=== PATIENT | male | born 1935 | race Caucasian/White ===

== ENCOUNTER 2016-07-18 06:19 | Day surgery (SDC) | payer MEDICARE, BC ==
[2016-07-16 14:46] VITALS: BMI 31.3
[~2016-07-18 06:19] MED LIST: DEXAMETHASONE SOD PHOSPHATE 10 MG/ML 1 ML VIAL IV ONE; HEPARIN SODIUM,PORCINE 5,000 UNIT/ML 1 ML VIAL SQ ONE; HYDROmorphone 1 MG/ML 1 ML SYRINGE IVP PRN; LACTATED RINGERS 1,000 ML IV SCH; ONDANSETRON 4 MG/2 ML VIAL IVP ONE; Pre Op ABX Message 1 EACH MISC MISCELLANE ONE
[2016-07-18 06:41] VITALS: RESP 18; TEMP 98
[2016-07-18] MEDS ORDERED: LIDOCAINE 1% 20 ML VIAL (10MG/ML) FOR IV START INTRADERMA ONE (07:14)
[2016-07-18 07:18] LABS: Glucose,Whole Blood 169 mg/dL (75-99)
--- NOTE | 2016-07-18 07:40 | P.GSHP ---
History of Present Illness H&P Date: 07/18/16 Chief Complaint: Right cheek skin lesion [id number] male referred from Dr. Olegario Dwyer. Patient presents today for excision of a right cheek skin lesion. Patient has had issues with some bleeding from the skin lesion. It has grown slightly in size in the last 4 months. Past Medical History Past Medical History: Cancer, Diabetes Mellitus, Eye Disorder Additional Past Medical History / Comment(s): COLOSTOMY, CANCEROUS RECTAL TUMOR History of Any Multi-Drug Resistant Organisms: None Reported Past Surgical History: Bowel Resection, Hernia Repair Additional Past Surgical History / Comment(s): INCIONAL HERNIA REPAIR OF STOMA X2, VENKATESH INGUINAL HERNIA REPAIR, HYDROCELE REPAIR Past Anesthesia/Blood Transfusion Reactions: No Reported Reaction Past Psychological History: No Psychological Hx Reported Smoking Status: Former smoker Past Alcohol Use History: None Reported Additional Past Alcohol Use History / Comment(s): Chewed tobacco and smoked cigars quit 20 yrs ago. Past Drug Use History: None Reported - Past Family History Daughter(s) Family Medical History: Cancer Medications and Allergies Home Medications Medication Instructions Recorded Confirmed Type Zolpidem [Ambien] 10 mg PO HS 12/17/13 07/18/16 History glipiZIDE [Glucotrol] 10 mg PO DAILY 12/17/13 07/18/16 History metFORMIN HCL [Glucophage] 500 mg PO QAM 12/17/13 07/18/16 History Allergies Allergy/AdvReac Type Severity Reaction Status Date / Time No Known Allergies Allergy Verified 07/18/16 07:02 Surgical - Exam Vital Signs Temp Pulse Resp BP Pulse Ox 98.0 F 69 18 166/73 96 07/18/16 06:35 07/18/16 06:35 07/18/16 06:35 07/18/16 06:35 07/18/16 06:35 - General well developed, no distress - Eyes PERRL - ENT normal pinna - Neck no masses - Respiratory normal expansion - Cardiovascular Rhythm: regular - Abdomen Abdomen: soft, non tender - Integumentary 2.5 cm scaly erythematous skin lesion of right cheek near patient's preauricular area. Results - Labs Abnormal Lab Results - Last 24 Hours (Table) 07/18/16 Range/Units 06:57 POC Glucose (mg/dL) 169 H (75-99) mg/dL Assessment and Plan Plan: Right cheek skin lesion. We will perform excision.
[2016-07-18] MEDS ORDERED: BUPIVACAIN-EPI 0.25%-1:200,000 30 ML VIAL SQ ONE ×2 (07:47)
[2016-07-18] MEDS ORDERED: PROPOFOL 10 MG/ML 20 ML VIAL IV ONE (07:49)
[2016-07-18] MEDS ORDERED: MIDAZOLAM 2 MG/2 ML VIAL ONE (07:49)
[2016-07-18] MEDS ORDERED: fentaNYL (PF) 50 MCG/ML 2 ML AMP ONE (07:49)
--- NOTE | 2016-07-18 08:25 | P.OP ---
Date of Procedure: 07/18/16 Preoperative Diagnosis: Right cheek skin lesion Postoperative Diagnosis: Right cheek skin lesion Procedure(s) Performed: Excision of right cheek skin lesion Anesthesia: MAC Surgeon: Blake Reynoso Estimated Blood Loss (ml): 5 Pathology: other (Right cheek skin) Condition: stable Disposition: PACU Description of Procedure: The patient's placed on the operative table in the supine position. He received IV sedation. His right cheek was prepped and draped in usual sterile fashion. The skin lesion was marked and then using elliptical skin incision the lesion was excised. A 15 blade was used to divide the skin and electrocautery used to divide the subcutaneous tissues. The specimens of pathology. The skin was closed using 3-0 Monocryl suture. Steri-Strips were applied. Patient top procedure well and was sent to recovery in stable condition
[2016-07-18 08:52] VITALS: BP 150/77; PULSE 61
== END 2016-07-18 09:20 | disposition home or self-care (01) ==
LOC: OR 06:19
PROVIDERS: ATTEND Surgery
DX: L82.1 Other seborrheic keratosis (principal); L57.8 Other skin changes due to chronic exposure to nonionizing radiation; E11.9 Type 2 diabetes mellitus without complications; Z79.84 Long term (current) use of oral hypoglycemic drugs; Z79.899 Other long term (current) drug therapy; Z87.891 Personal history of nicotine dependence
CPT/HCPCS: 88305; 11443; J2250; J1644; J1100; J2405; J3010; J2704

== ENCOUNTER 2017-04-11 07:52 | Inpatient (IN) | payer MEDICARE, BC ==
[2017-04-03 15:10] VITALS: BMI 30.8
[~2017-04-11 07:52] MED LIST changes: -DEXAMETHASONE SOD PHOSPHATE 10 MG/ML 1 ML VIAL IV ONE; -HYDROmorphone 1 MG/ML 1 ML SYRINGE IVP PRN; -LACTATED RINGERS 1,000 ML IV SCH; +MIDAZOLAM 2 MG/2 ML VIAL IV PRN; +MORPHINE SULFATE 4 MG/ML SYRINGE IV PRN; -ONDANSETRON 4 MG/2 ML VIAL IVP ONE; -Pre Op ABX Message 1 EACH MISC MISCELLANE ONE; +ceFAZolin IN SWFI 2 GM/20 ML SYRINGE IVP ONE
[2017-04-11 08:23] LABS: Glucose,Whole Blood 198 mg/dL (75-99)
[2017-04-11] MEDS: LACTATED RINGERS 1,000 ML IV SCH ×2 (08:25→20:29)
[2017-04-11] MEDS ORDERED: DEXAMETHASONE SOD PHOSPHATE 10 MG/ML 1 ML VIAL IV ONE (08:34)
[2017-04-11] MEDS ORDERED: ONDANSETRON 4 MG/2 ML VIAL IVP ONE (08:34)
--- NOTE | 2017-04-11 09:15 | P.GSHP ---
History of Present Illness H&P Date: 04/11/17 Chief Complaint: Parastomal hernia with prolapse of colostomy The 81-year-old male referred from Dr. Olegario Dwyer. Patient resents today for repair of parastomal hernia and colostomy prolapse. Patient has had medical clearance provided by Dr. Arshad prior to surgery. Patient's family are aware that he has a large parastomal hernia the colostomy fully removed and the stomal hernia will be repaired at the time of surgery. I've gone over the risks of surgery with the patient's family. Past Medical History Past Medical History: Cancer, Diabetes Mellitus, Eye Disorder Additional Past Medical History / Comment(s): COLOSTOMY, CANCEROUS RECTAL TUMOR History of Any Multi-Drug Resistant Organisms: None Reported Past Surgical History: Bowel Resection, Hernia Repair Additional Past Surgical History / Comment(s): INCIONAL HERNIA REPAIR OF STOMA X2, VENKATESH INGUINAL HERNIA REPAIR, HYDROCELE REPAIR Past Anesthesia/Blood Transfusion Reactions: No Reported Reaction Past Psychological History: No Psychological Hx Reported Smoking Status: Former smoker Past Alcohol Use History: None Reported Additional Past Alcohol Use History / Comment(s): Chewed tobacco and smoked cigars quit 20 yrs ago. Past Drug Use History: None Reported - Past Family History Daughter(s) Family Medical History: Cancer Medications and Allergies Home Medications Medication Instructions Recorded Confirmed Type Zolpidem [Ambien] 10 mg PO HS 12/17/13 04/03/17 History glipiZIDE [Glucotrol] 10 mg PO DAILY 12/17/13 04/03/17 History metFORMIN HCL [Glucophage] 500 mg PO QAM 12/17/13 04/03/17 History Baclofen [Lioresal] 10 mg PO DAILY 04/03/17 04/03/17 History Escitalopram [Lexapro] 5 mg PO DAILY 04/03/17 04/03/17 History Losartan [Cozaar] 25 mg PO DAILY 04/03/17 04/11/17 History Multivitamin [Men's Multi-Vitamin] 1 each PO DAILY 04/03/17 04/03/17 History Allergies Allergy/AdvReac Type Severity Reaction Status Date / Time No Known Allergies Allergy Verified 04/11/17 08:29 Surgical - Exam Vital Signs Temp Pulse Resp BP Pulse Ox 97.7 F 82 16 189/66 96 04/11/17 08:23 04/11/17 08:23 04/11/17 08:23 04/11/17 08:23 04/11/17 08:23 - General well developed, well nourished, no distress - Eyes PERRL - ENT normal pinna - Neck no masses - Respiratory normal expansion - Cardiovascular Rhythm: regular - Abdomen Abdomen: soft, non tender (Large parastomal hernia left lower quadrant. There is prolapse of approximately 5 cm of colon within the colostomy.) Results - Labs Abnormal Lab Results - Last 24 Hours (Table) 04/11/17 Range/Units 08:20 POC Glucose (mg/dL) 198 H (75-99) mg/dL Assessment and Plan Assessment: Parastomal hernia we will perform repair.
[2017-04-11] MEDS ORDERED: LIDOCAINE 1% INJ 10MG/ML (20 ML MDV) ONE (09:38)
[2017-04-11] MEDS ORDERED: LABETALOL 5 MG/ML VIAL MDV ONE (09:38)
[2017-04-11] MEDS ORDERED: HYDROmorphone (PF) 1 MG/ML ONE (09:38)
[2017-04-11] MEDS ORDERED: PROPOFOL 10 MG/ML 20 ML VIAL IV ONE (09:38)
[2017-04-11] MEDS ORDERED: NEOSTIGMINE 1 MG/ML 10 ML VIAL ONE (09:38)
[2017-04-11] MEDS ORDERED: fentaNYL (PF) 50 MCG/ML 2 ML AMP ONE (09:38)
[2017-04-11] MEDS ORDERED: ROCURONIUM BROMIDE 10 MG/ML 10 ML VIAL IV ONE (09:38)
[2017-04-11] MEDS ORDERED: SUCCINYLCHOLINE CHLORIDE 100 MG/5 ML SYR IV ONE (09:38)
[2017-04-11] MEDS ORDERED: GLYCOPYRROLATE 0.2 MG/ML 2 ML VIAL ONE (09:38)
[2017-04-11] MEDS ORDERED: LACTATED RINGERS 1,000 ML IV ONE ×2 (10:00→11:27)
[2017-04-11] MEDS ORDERED: ONDANSETRON 4 MG/2 ML VIAL IVP PRN (11:50)
[2017-04-11] MEDS ORDERED: BENZOCAINE/MENTHOL LOZENG 1 EACH LOZENGE MUCOUS MEM PRN (11:50)
[2017-04-11] MEDS: HYDROmorphone 0.5 MG/0.5 ML SYRINGE IVP PRN ×4 (12:18→13:38)
[2017-04-11] MEDS ORDERED: hydrALAZINE HCL 20 MG/ML 1 ML VIAL IVP ONE (12:44)
[2017-04-11] MEDS ORDERED: METOPROLOL TARTRATE 5 MG/5 ML VIAL IVP ONE (13:04)
[2017-04-11 13:11] LABS: Glucose,Whole Blood 222 mg/dL (75-99)
[2017-04-11] MEDS ORDERED: INSULIN ASPART 100 UNIT/ML 1 ML 10 ML VIAL SQ ONE (13:20)
--- NOTE | 2017-04-11 13:47 | P.OP ---
Date of Procedure: 04/11/17 Preoperative Diagnosis: Parastomal hernia with prolapse of colon Postoperative Diagnosis: Parastomal hernia with prolapse of colon Procedure(s) Performed: Lysis of adhesions Repair of parastomal hernia Partial colectomy Anesthesia: EMMA Surgeon: Blake Reynoso Estimated Blood Loss (ml): 150 Pathology: other (colon) Condition: stable Disposition: PACU Description of Procedure: The patient's placed on the operating table in the supine position. He received general anesthesia. His abdomen was prepped and draped usual sterile fashion. The skin was incised in the low midline incision. There were adhesions noted in the belly. Approximate 30 minutes of operative time used to lyse adhesions. The colon was transected at the fascial level. And then the colon was mobilized along the colon. A suitable spot was found on the left upper quadrant. Using a 15 blade scalpel the skin was incised and then using left cautery the fascia was divided the colon was then brought out through the new colostomy site. The fascia was then closed with looped #1 PDS suture. Skin was closed charbel. The old colostomy site was dissected by dividing the mucocutaneous line and excising the colostomy. The specimens of pathology. The fascial defect was then closed using #1 Ethibond sutures. A VARINDER drain was placed in the subcutaneous space and brought out through a separate stab incision. Next the colostomy was matured by dividing the colon and the redundant colon was sent to pathology. The colostomy then matured using 3-0 Vicryl suture. Silver dressing was applied to the incision site. Patient top she will was sent to recovery in stable condition.
[2017-04-11] MEDS: HYDROmorphone 2 MG/ML 1 ML SYRINGE IVP PRN ×2 (15:30→23:31)
[2017-04-11] MEDS: D5-0.45% NACL WITH KCL 20MEQ/L 1,000 ML IV SCH ×2 (15:32→23:23)
[2017-04-11 17:08] LABS: Glucose,Whole Blood 211 mg/dL (75-99)
[2017-04-11] MEDS: HEPARIN SODIUM,PORCINE 5,000 UNIT/ML 1 ML VIAL SQ SCH ×2 (17:19→23:23)
[2017-04-11] MEDS: INSULIN ASPART 100 UNIT/ML 1 ML 10 ML VIAL SQ SCH ×2 (17:19→20:25)
[2017-04-11 19:57] LABS: Glucose,Whole Blood 188 mg/dL (75-99)
[2017-04-11] MEDS: ALVIMOPAN 12 MG CAPSULE PO SCH (20:28)
[2017-04-11] MEDS: FAMOTIDINE 20 MG/2 ML VIAL IV SCH (20:28)
[2017-04-11] MEDS: ZOLPIDEM 10 MG TAB PO PRN (23:23)
[2017-04-12 07:07] LABS: Glucose,Whole Blood 241 mg/dL (75-99)
[2017-04-12 07:30] LABS: Basophils # (A) 0.1 k/uL (0-0.2); Basophils % (A) 1 %; Eosinophils % (A) 0 %; HCT 36.6 % (39.0-53.0); HGB 12.7 gm/dL (13.0-17.5); Lymphocytes % (A) 54 %; MCH 31.9 pg (25.0-35.0); MCHC 34.7 g/dL (31.0-37.0); MCV 91.9 fL (80.0-100.0); Mean Platelet Volume 6.5; Monocytes # (A) 0.7 k/uL (0-1.0); Monocytes % (A) 4 %; Neutrophils # (A) 7.2 k/uL (1.3-7.7); Neutrophils % (A) 39 %; Platelet Count 131 k/uL (150-450); RBC 3.98 m/uL (4.30-5.90); RDW 14.4 % (11.5-15.5); WBC 18.5 k/uL (3.8-10.6)
[2017-04-12 07:31] LABS: Lymphocytes # (A) 9.9 k/uL (1.0-4.8)
[2017-04-12 07:46] LABS: Anion Gap 8 mmol/L; Blood Urea Nitrogen 15 mg/dL (9-20); Calcium 8.9 mg/dL (8.4-10.2); Carbon Dioxide 27 mmol/L (22-30); Chloride 102 mmol/L (98-107); Glucose 240 mg/dL (74-99); Potassium 4.7 mmol/L (3.5-5.1); Sodium 137 mmol/L (137-145)
[2017-04-12] MEDS: INSULIN ASPART 100 UNIT/ML 1 ML 10 ML VIAL SQ SCH ×4 (08:03→20:55)
[2017-04-12] MEDS: HEPARIN SODIUM,PORCINE 5,000 UNIT/ML 1 ML VIAL SQ SCH ×2 (08:04→15:33)
[2017-04-12] MEDS: ALVIMOPAN 12 MG CAPSULE PO SCH ×2 (08:06→20:55)
[2017-04-12] MEDS: LOSARTAN 25 MG TAB PO SCH (08:06)
[2017-04-12] MEDS: metFORMIN 500 MG TAB PO SCH (08:06)
[2017-04-12] MEDS: glipiZIDE 10 MG TAB PO SCH (08:06)
[2017-04-12] MEDS: FAMOTIDINE 20 MG/2 ML VIAL IV SCH ×2 (08:06→20:55)
[2017-04-12] MEDS: ESCITALOPRAM 5 MG TAB PO SCH (08:06)
[2017-04-12] MEDS: BACLOFEN 10 MG TAB PO SCH (08:06)
[2017-04-12] MEDS: D5-0.45% NACL WITH KCL 20MEQ/L 1,000 ML IV SCH ×2 (08:09→13:44)
[2017-04-12 11:40] LABS: Glucose,Whole Blood 237 mg/dL (75-99)
--- NOTE | 2017-04-12 11:49 | P.PN ---
Subjective Progress Note Date: 04/12/17 The patient is a 81-year-old gentleman status post open parastomal hernia repair. His family is at bedside. His tolerating liquids. No flatus in his ostomy bag. White count elevated at over 18,000. His pain is controlled. Reports gastroesophageal reflux disease. No concerns from his nurse. Objective - Vital Signs Vital signs: Vital Signs Temp 98.7 F 04/12/17 07:00 Pulse 75 04/12/17 07:00 Resp 14 04/12/17 07:00 BP 149/72 04/12/17 07:00 Pulse Ox 94 L 04/12/17 07:00 Intake & Output 04/11/17 04/12/17 04/12/17 18:59 06:59 18:59 Intake Total 2620 720 Output Total 755 1050 40 Balance 1865 -1050 680 Intake: IV 2400 Oral 220 720 Output: Drainage 40 Left Lower Abdomen 40 Urine 575 1050 Estimated Blood Loss 180 Other: Voiding Method Indwelling Catheter Indwelling Catheter Indwelling Catheter - Exam GENERAL: Well developed and in no acute distress. Pleasant. HEENT: No sclera icterus. Extraocular movements grossly intact. Moist buccal mucosa. Head is atraumatic, normocephalic. He is hard of hearing. CHEST: Non-labored respirations and equal bilateral excursions. CARDIOVASCULAR: Palpable 2+ radial pulses. ABDOMEN: Soft, no peritonitis. No flatus or stool in colostomy bag. Dressings intact. MUSCULOSKELETAL: No clubbing, cyanosis. NEUROLOGIC: No focal or lateralizing signs. PSYCH: Appropriate affect. - Labs CBC & Chem 7: 04/12/17 06:48 04/12/17 06:48 Labs: Abnormal Lab Results - Last 24 Hours (Table) 04/11/17 04/11/17 04/11/17 Range/Units 13:09 17:03 19:54 WBC (3.8-10.6) k/uL RBC (4.30-5.90) m/uL Hgb (13.0-17.5) gm/dL Hct (39.0-53.0) % Plt Count (150-450) k/uL Lymphocytes # (1.0-4.8) k/uL Glucose (74-99) mg/dL POC Glucose (mg/dL) 222 H 211 H 188 H (75-99) mg/dL 04/12/17 04/12/17 04/12/17 Range/Units 06:48 06:48 07:04 WBC 18.5 H (3.8-10.6) k/uL RBC 3.98 L (4.30-5.90) m/uL Hgb 12.7 L (13.0-17.5) gm/dL Hct 36.6 L (39.0-53.0) % Plt Count 131 L (150-450) k/uL Lymphocytes # 9.9 H (1.0-4.8) k/uL Glucose 240 H (74-99) mg/dL POC Glucose (mg/dL) 241 H (75-99) mg/dL 04/12/17 Range/Units 11:37 WBC (3.8-10.6) k/uL RBC (4.30-5.90) m/uL Hgb (13.0-17.5) gm/dL Hct (39.0-53.0) % Plt Count (150-450) k/uL Lymphocytes # (1.0-4.8) k/uL Glucose (74-99) mg/dL POC Glucose (mg/dL) 237 H (75-99) mg/dL Assessment and Plan (1) Parastomal hernia Current Visit: Yes Status: Acute Code(s): K43.5 - PARASTOMAL HERNIA WITHOUT OBSTRUCTION OR GANGRENE SNOMED Code(s): 386878707 (2) Diabetes type 2, controlled Current Visit: Yes Status: Acute Code(s): E11.9 - TYPE 2 DIABETES MELLITUS WITHOUT COMPLICATIONS SNOMED Code(s): 83465390 (3) Diabetes type 2, uncontrolled Current Visit: Yes Status: Acute Code(s): E11.65 - TYPE 2 DIABETES MELLITUS WITH HYPERGLYCEMIA SNOMED Code(s): 82674839 Plan: 1. He still has a mild ileus. Continue with hospitalization. 2. Await ostomy function prior to discharge. 3. Continue with VARINDER drain. 4. Continue with antibiotics.
[2017-04-12] MEDS: MULTIVITAMINS, THERA 1 EACH TAB PO SCH (13:43)
[2017-04-12 13:50] LABS: Hemoglobin A1C 6.8 % (4.0-6.0)
--- NOTE | 2017-04-12 14:32 | XR ---
EXAMINATION TYPE: XR chest 1V portable DATE OF EXAM: 04/12/2017 Comparison: None Clinical History: 81-year-old male cough Findings: Lordotic positioning. Heart mildly enlarged. Aorta is elongated/ectatic. Mild interstitial prominence has somewhat chronic appearance. Hazy bibasilar densities likely relating to overlying soft tissue. Trace effusions difficult to exclude. Impression: Mild cardiomegaly. Lordotic positioning with hazy densities in the lower lungs likely relating to ove rlying soft tissue. Trace effusions difficult to exclude.
[2017-04-12] MEDS: LEVOFLOXACIN 500MG-D5W PMX 500 MG in DEXTROSE/WATER 1 100ML.BAG IVPB SCH (15:33)
[2017-04-12] MEDS: IPRATROPIUM-ALBUTEROL 3 ML NEB INHALATION PRN ×2 (16:52→20:39)
[2017-04-12 17:26] LABS: Glucose,Whole Blood 224 mg/dL (75-99)
[2017-04-12] MEDS: HYDROmorphone 2 MG/ML 1 ML SYRINGE IVP PRN ×2 (17:56→22:37)
--- NOTE | 2017-04-12 19:04 | CONS ---
CONSULTATION DATE OF SERVICE: 04/12/2017 I am covering for Dr. Arshad. REASON FOR CONSULTATION: Advice regarding diabetes and other medical issues requested by Dr. Reynoso. HISTORY OF PRESENT ILLNESS: This 81-year-old gentleman with a past history of diabetes type 2, history of colostomy, history of rectal cancer, history of bowel resection, being followed by Dr. Arshad in the outpatient setting, underwent parastomal hernia repair with a prolapse of colon and lysis of adhesions by Dr. Reynoso. The patient is hard of hearing. There is no history of fever, rigors. No history of headache, loss of consciousness, seizures at this time. PAST MEDICAL HISTORY: History of diabetes, history of colostomy, history of bowel resection, hernia repair. MEDICATIONS ARE: 1. Metformin 500 mg p.o. daily. 2. Glucotrol 10 mg daily. 3. Ambien 10 mg q.h.s. 4. Multivitamins 1 p.o. daily. 5. Cozaar 25 mg daily. 6. Lexapro 5 mg p.o. daily. 7. Lioresal 10 mg p.o. daily. ALLERGIES: None. FAMILY HISTORY: History of cancer in the family. SOCIAL HISTORY: Previous history of smoking. No history of current smoking or alcohol intake. REVIEW OF SYSTEMS: ENT: Diminished hearing, diminished vision. CARDIOVASCULAR: No angina, palpitations. RESPIRATORY: Occasional cough. GI: No nausea or vomiting. : No dysuria. NERVOUS: No numbness or weakness. ALLERGY/IMMUNOLOGY: No asthma or hay fever. MUSCULOSKELETAL: As mentioned earlier. HEMATOLOGY/ONCOLOGY: No history of anemia. ENDOCRINE: Diabetes mellitus. CONSTITUTIONAL: As mentioned earlier. DERMATOLOGY: Negative. RHEUMATOLOGY: Negative. PSYCHIATRY: As mentioned earlier. PHYSICAL EXAMINATION: Alert and oriented x3. Pulse is 81, blood pressure 160/85, respirations 16, temperature 98.7, pulse ox 94% on room air. HEENT: Conjunctivae normal. Oral mucosa moist. NECK: No jugular venous distention. No carotid bruits. No lymph node enlargement. CARDIOVASCULAR: S1, S2 muffled. No S3. No S4. RESPIRATORY: Breath sounds diminished in the bases. A few scattered rhonchi. No crackles. ABDOMEN: Soft, status post surgery. LEGS: No edema. No swelling. NERVOUS SYSTEM: Higher functions as mentioned earlier. Moves all 4 limbs. No focal motor or sensory deficits. LYMPHATIC: No lymphadenopathy in neck or axillae. SKIN: No ulcer, rash or bleeding. LABS: WBC 8.2, hemoglobin is 12.7. ASSESSMENT: 1. Status post parastomal hernia repair with prolapse of colon. 2. Diabetes mellitus type 2. 3. Cough with possible acute bronchitis. 4. Increased WBC. 5. Anemia, normocytic; anemia of chronic disease. 6. History of bowel resection. 7. History of colostomy. 8. Remote history of nicotine dependence. 9. FULL CODE. RECOMMENDATIONS AND DISCUSSION: In this 81-year-old gentleman who presented after surgery, at this time I recommend to continue current medical management and symmetric treatment. I recommend a course of antibiotics as well as bronchodilators. Otherwise, I would also recommend proton pump inhibitors and closely follow. Monitor blood sugars closely. D5 water may be switched to 0.9. We will follow the patient closely with you. Thank you, Dr. Reynoso, for letting us participate in the care of this patient. MMODL / MARYN: [id number] /
[2017-04-12 19:49] LABS: Glucose,Whole Blood 225 mg/dL (75-99)
[2017-04-12] MEDS: LACTATED RINGERS 1,000 ML IV SCH (21:04)
[2017-04-12] MEDS ORDERED: SODIUM CHLORIDE 0.9% 500 ML IV ONE (21:46)
[2017-04-12 21:55] LABS: Glucose,Whole Blood 204 mg/dL (75-99)
[2017-04-12] MEDS: ZOLPIDEM 10 MG TAB PO PRN (22:40)
[2017-04-13] MEDS: HEPARIN SODIUM,PORCINE 5,000 UNIT/ML 1 ML VIAL SQ SCH ×4 (00:40→23:40)
[2017-04-13] MEDS: SODIUM CHLORIDE 0.9% 1,000 ML IV SCH ×3 (00:41→22:38)
[2017-04-13] MEDS: HYDROmorphone 2 MG/ML 1 ML SYRINGE IVP PRN ×3 (04:07→19:18)
[2017-04-13 07:23] LABS: Glucose,Whole Blood 203 mg/dL (75-99)
[2017-04-13 07:34] LABS: Basophils # (A) 0.1 k/uL (0-0.2); Basophils % (A) 1 %; Eosinophils % (A) 0 %; HCT 33.9 % (39.0-53.0); HGB 11.5 gm/dL (13.0-17.5); Lymphocytes % (A) 54 %; MCHC 33.9 g/dL (31.0-37.0); MCV 91.5 fL (80.0-100.0); Mean Platelet Volume 6.9; Monocytes # (A) 0.7 k/uL (0-1.0); Monocytes % (A) 4 %; Neutrophils # (A) 6.8 k/uL (1.3-7.7); Neutrophils % (A) 39 %; Platelet Count 118 k/uL (150-450); Poikilocytosis Slight; RBC 3.71 m/uL (4.30-5.90); RDW 14.5 % (11.5-15.5); WBC 17.3 k/uL (3.8-10.6)
[2017-04-13 07:38] LABS: Anion Gap 7 mmol/L; Blood Urea Nitrogen 12 mg/dL (9-20); Calcium 8.7 mg/dL (8.4-10.2); Carbon Dioxide 27 mmol/L (22-30); Chloride 103 mmol/L (98-107); Glucose 184 mg/dL (74-99); Potassium 4.2 mmol/L (3.5-5.1); Sodium 137 mmol/L (137-145)
[2017-04-13 07:47] LABS: Lymphocytes # (A) 9.2 k/uL (1.0-4.8)
[2017-04-13] MEDS: IPRATROPIUM-ALBUTEROL 3 ML NEB INHALATION PRN (07:57)
[2017-04-13] MEDS: MULTIVITAMINS, THERA 1 EACH TAB PO SCH (08:19)
[2017-04-13] MEDS: metFORMIN 500 MG TAB PO SCH (08:19)
[2017-04-13] MEDS: glipiZIDE 10 MG TAB PO SCH (08:19)
[2017-04-13] MEDS: ALVIMOPAN 12 MG CAPSULE PO SCH ×2 (08:19→20:09)
[2017-04-13] MEDS: FAMOTIDINE 20 MG/2 ML VIAL IV SCH ×2 (08:19→20:08)
[2017-04-13] MEDS: LOSARTAN 25 MG TAB PO SCH (08:19)
[2017-04-13] MEDS: BACLOFEN 10 MG TAB PO SCH (08:19)
[2017-04-13] MEDS: INSULIN ASPART 100 UNIT/ML 1 ML 10 ML VIAL SQ SCH ×4 (08:19→20:08)
[2017-04-13 11:31] LABS: Glucose,Whole Blood 196 mg/dL (75-99)
[2017-04-13] MEDS ORDERED: IPRATROPIUM-ALBUTEROL 3 ML NEB INHALATION PRN (13:23)
--- NOTE | 2017-04-13 13:29 | P.PN ---
Subjective Progress Note Date: 04/13/17 The patient is a 81-year-old gentleman status post open parastomal hernia repair. His family is at bedside. They report he is more confused today. The patient is eager to go home. No reports of nausea vomiting. He has decreased oral intake. No flatus from his colostomy bag. Objective - Vital Signs Vital signs: Vital Signs Temp 98.6 F 04/13/17 07:00 Pulse 90 04/13/17 07:59 Resp 14 04/13/17 07:00 BP 180/82 04/13/17 07:00 Pulse Ox 93 L 04/13/17 07:00 Intake & Output 04/12/17 04/13/17 04/13/17 18:59 06:59 18:59 Intake Total 1080 1375 350 Output Total 1180 1325 250 Balance -100 50 100 Intake: Intake, IV Titration 1025 Amount Sodium Chloride 0.9% 1, 525 000 ml @ 75 mls/hr IV . [id number] [facility] Rx#:[id number] Sodium Chloride 0.9% 500 500 ml @ 999 mls/hr IV .Q31M ONE Rx#:[id number] Oral 1080 350 350 Output: Drainage 80 50 Left Lower Abdomen 80 50 Urine 1100 1275 250 Straight 1000 Other: Voiding Method Indwelling Catheter Urinal Urinal # Voids 2 - Exam GENERAL: Well developed and in no acute distress. Pleasant. HEENT: No sclera icterus. Extraocular movements grossly intact. Moist buccal mucosa. Head is atraumatic, normocephalic. He is hard of hearing. CHEST: Non-labored respirations and equal bilateral excursions. CARDIOVASCULAR: Palpable 2+ radial pulses. ABDOMEN: Soft, no peritonitis. No flatus or stool in colostomy bag. Dressings intact. VARINDER serosanguineous. MUSCULOSKELETAL: No clubbing, cyanosis. NEUROLOGIC: No focal or lateralizing signs. PSYCH: Appropriate affect. - Labs CBC & Chem 7: 04/13/17 07:00 04/13/17 07:00 Labs: Abnormal Lab Results - Last 24 Hours (Table) 04/12/17 04/12/17 04/12/17 Range/Units 06:48 17:21 19:44 WBC (3.8-10.6) k/uL RBC (4.30-5.90) m/uL Hgb (13.0-17.5) gm/dL Hct (39.0-53.0) % Plt Count (150-450) k/uL Lymphocytes # (1.0-4.8) k/uL Glucose (74-99) mg/dL POC Glucose (mg/dL) 224 H 225 H (75-99) mg/dL Hemoglobin A1c 6.8 H (4.0-6.0) % 04/12/17 04/13/17 04/13/17 Range/Units 21:28 07:00 07:00 WBC 17.3 H (3.8-10.6) k/uL RBC 3.71 L (4.30-5.90) m/uL Hgb 11.5 L (13.0-17.5) gm/dL Hct 33.9 L (39.0-53.0) % Plt Count 118 L (150-450) k/uL Lymphocytes # 9.2 H (1.0-4.8) k/uL Glucose 184 H (74-99) mg/dL POC Glucose (mg/dL) 204 H (75-99) mg/dL Hemoglobin A1c (4.0-6.0) % 04/13/17 04/13/17 Range/Units 07:05 11:28 WBC (3.8-10.6) k/uL RBC (4.30-5.90) m/uL Hgb (13.0-17.5) gm/dL Hct (39.0-53.0) % Plt Count (150-450) k/uL Lymphocytes # (1.0-4.8) k/uL Glucose (74-99) mg/dL POC Glucose (mg/dL) 203 H 196 H (75-99) mg/dL Hemoglobin A1c (4.0-6.0) % Assessment and Plan (1) Parastomal hernia Current Visit: Yes Status: Acute Code(s): K43.5 - PARASTOMAL HERNIA WITHOUT OBSTRUCTION OR GANGRENE SNOMED Code(s): 957462478 (2) Diabetes type 2, controlled Current Visit: Yes Status: Acute Code(s): E11.9 - TYPE 2 DIABETES MELLITUS WITHOUT COMPLICATIONS SNOMED Code(s): 65737263 (3) Diabetes type 2, uncontrolled Current Visit: Yes Status: Acute Code(s): E11.65 - TYPE 2 DIABETES MELLITUS WITH HYPERGLYCEMIA SNOMED Code(s): 93862599 Plan: 1. Await ostomy function. 2. White blood cell count still elevated. Await improvement. 3. Continue hospitalization. 4. Dr. Reynoso to resume care tomorrow.
[2017-04-13] MEDS: LEVOFLOXACIN 500MG-D5W PMX 500 MG in DEXTROSE/WATER 1 100ML.BAG IVPB SCH (15:24)
[2017-04-13 17:35] LABS: Glucose,Whole Blood 122 mg/dL (75-99)
[2017-04-13 20:08] LABS: Glucose,Whole Blood 166 mg/dL (75-99)
[2017-04-13] MEDS: LACTATED RINGERS 1,000 ML IV SCH (22:39)
[2017-04-13 23:55] LABS: Appearance,Urine Clear (Clear); Bilirubin,Urine Negative (Negative); Blood,Urine Small (Negative); Color,Urine Yellow; Glucose,Urine (UA) Negative (Negative); Ketones,Urine Negative (Negative); Leukocyte Esterase,Urine Negative (Negative); Mucus,Urine Rare /hpf; Nitrite,Urine Negative (Negative); Protein,Urine Trace (Negative); RBC,Urine 2 /hpf (0-5); Specific Gravity,Urine 1.007 (1.001-1.035); Urobilinogen,Urine <2.0 mg/dL (<2.0); WBC,Urine 1 /hpf (0-5)
[2017-04-14] MEDS: SODIUM CHLORIDE 0.9% 1,000 ML IV SCH ×2 (08:01→22:18)
[2017-04-14] MEDS: INSULIN ASPART 100 UNIT/ML 1 ML 10 ML VIAL SQ SCH ×4 (08:02→22:17)
[2017-04-14] MEDS: HYDROmorphone 2 MG/ML 1 ML SYRINGE IVP PRN (08:02)
[2017-04-14] MEDS: ALVIMOPAN 12 MG CAPSULE PO SCH ×2 (08:03→22:17)
[2017-04-14] MEDS: metFORMIN 500 MG TAB PO SCH (08:03)
[2017-04-14] MEDS: ESCITALOPRAM 5 MG TAB PO SCH (08:03)
[2017-04-14] MEDS: glipiZIDE 10 MG TAB PO SCH (08:03)
[2017-04-14] MEDS: HEPARIN SODIUM,PORCINE 5,000 UNIT/ML 1 ML VIAL SQ SCH ×2 (08:03→16:03)
[2017-04-14] MEDS: FAMOTIDINE 20 MG/2 ML VIAL IV SCH ×2 (08:04→22:17)
[2017-04-14] MEDS: BACLOFEN 10 MG TAB PO SCH (08:04)
[2017-04-14] MEDS: LOSARTAN 25 MG TAB PO SCH ×2 (08:04→22:17)
[2017-04-14] MEDS: MULTIVITAMINS, THERA 1 EACH TAB PO SCH ×2 (08:05→12:24)
[2017-04-14 08:13] LABS: Glucose,Whole Blood 187 mg/dL (75-99)
--- NOTE | 2017-04-14 09:04 | P.PN ---
Subjective Progress Note Date: 04/14/17 81-year-old male who underwent repair of parastomal hernia, partial colectomy, and lysis of adhesions on 04/11/[address] Arshad has been consulted for medical management. Patient was seen and examined at the bedside on rounds with Dr. Arshad. He is awake and alert. He states he is having a lot of pain currently. He states he is feeling very weak today. He is on a clear liquid diet and is tolerating without nausea or vomiting. His surgical dressing is intact with old drainage present. No flatus or output from his colostomy bag. VARINDER drain intact with serosang drainage. His blood pressure has been elevated with a systolic ranging from 164-190. He is on 2 L nasal cannula with oxygen saturations greater than 92%. He states he is using his incentive spirometer 10 times an hour. Objective - Vital Signs Vital signs: Vital Signs Temp 98.7 F 04/14/17 07:00 Pulse 80 04/14/17 07:00 Resp 16 04/14/17 07:00 BP 187/80 04/14/17 07:00 Pulse Ox 96 04/14/17 07:00 Intake & Output 04/13/17 04/14/17 04/14/17 18:59 06:59 18:59 Intake Total 1550 1452.5 Output Total 280 30 Balance 1270 1422.5 Intake: Intake, IV Titration 600 862.5 Amount Sodium Chloride 0.9% 1, 600 862.5 000 ml @ 75 mls/hr IV . [id number] [facility] Rx#:[id number] Oral 950 590 Output: Drainage 30 30 Left Lower Abdomen 30 30 Urine 250 Other: Voiding Method Urinal Urinal # Voids 2 2 - Exam GENERAL: This is a 81-year-old male in no apparent distress at the time of examination. Pleasant and cooperative. HEENT: Hard of hearing. Head is atraumatic, normocephalic. Pupils are equal, round, and reactive to light. Sclerae anicteric. Conjunctivae are clear. Mucus membranes of the mouth are moist. Neck is supple. RESPIRATORY: Clear to ausculation. No wheezes, rales, or rhonchi. No use of accessory muscles. Patient maintaining oxygen saturation greater than 92% on 2 L nasal cannula. No chest wall tenderness is noted on palpation or with deep breathing. CARDIOVASCULAR: S1 and S2 noted. No systolic or diastolic murmur auscultated. No JVD noted. No S3 or S4 noted. GASTROINTESTINAL: Colostomy present without flatus or output. VARINDER drain intact with serosang drainage. Abdomen soft and round. Hypoactive bowel sounds auscultated x 4 quadrants. Pain and tenderness noted upon palpation. INTEGUMENTARY: No cyanosis. No jaundice. No rashes noted. No cellulitis noted. EXTREMITIES: 2+ peripheral pulses. No evidence of peripheral edema. No calf tenderness noted. NEUROLOGIC: Cranial nerves II-XII intact. PSYCHIATRIC: Awake, alert, and oriented X 3. Appropriate affect. Intact judgement and insight. - Labs CBC & Chem 7: 04/13/17 07:00 04/13/17 07:00 Labs: Abnormal Lab Results - Last 24 Hours (Table) 04/13/17 04/13/17 04/13/17 Range/Units 07:00 11:28 17:06 WBC 17.3 H (3.8-10.6) k/uL RBC 3.71 L (4.30-5.90) m/uL Hgb 11.5 L (13.0-17.5) gm/dL Hct 33.9 L (39.0-53.0) % Plt Count 118 L (150-450) k/uL Lymphocytes # 9.2 H (1.0-4.8) k/uL POC Glucose (mg/dL) 196 H 122 H (75-99) mg/dL Urine Protein (Negative) Urine Blood (Negative) Urine Mucus (None) /hpf 04/13/17 04/13/17 04/14/17 Range/Units 20:05 23:40 07:51 WBC (3.8-10.6) k/uL RBC (4.30-5.90) m/uL Hgb (13.0-17.5) gm/dL Hct (39.0-53.0) % Plt Count (150-450) k/uL Lymphocytes # (1.0-4.8) k/uL POC Glucose (mg/dL) 166 H 187 H (75-99) mg/dL Urine Protein Trace H (Negative) Urine Blood Small H (Negative) Urine Mucus Rare H (None) /hpf Assessment and Plan Plan: ASSESSMENT: Parastomal hernia and prolapse of colostomy Repair of parastomal hernia, partial colectomy, and lysis of adhesions on 2017 History of rectal cancer with bowel resection and colostomy Diabetes mellitus, type II, hemoglobin A1c 6.8% History of remote nicotine dependence Essential hypertension Obesity: BMI 30.8 PLAN: -Continue postoperative care per Dr. Reynoso -Monitor blood pressure -Increase Cozaar to 25mg PO BID -Begin Norvasc 5mg PO daily -Capillary blood glucose accu-checks AC/HS -NovoLog sliding scale insulin coverage AC/HS -Home meds as appropriate -Monitor labs -Encourage activity -Incentive spirometer 10 times an hour while awake -PT/OT -GI prophylaxis: Pepcid 20mg IV BID -DVT prophylaxis: Heparin 5000 units subcu every 8 hours -Monitor vital signs and address as appropriate -Discharge planning: Patient will likely require ECF placement -Further recommendations pending patient's course Nurse practitioner note has been reviewed by physician. Signing provider agrees with the documented findings, assessment, and plan of care.
--- NOTE | 2017-04-14 09:08 | P.PN ---
Subjective Progress Note Date: 04/14/17 81-year-old male seen and examined at bedside. Patient is very hard of hearing attempted to sit the patient on the edge of the bed takes the assist of 2 patient cannot sit upright without leaning back. PT OT eval pending. Patient is postop 11 of April lysis of adhesions partial colectomy repair of parastomal hernia. Ostomy left lower quadrant no stool noted in the ostomy bag VARINDER drain in place serous drainage noted Objective - Vital Signs Vital signs: Vital Signs Temp 98.7 F 04/14/17 07:00 Pulse 80 04/14/17 07:00 Resp 16 04/14/17 07:00 BP 187/80 04/14/17 07:00 Pulse Ox 96 04/14/17 07:00 Intake & Output 04/13/17 04/14/17 04/14/17 18:59 06:59 18:59 Intake Total 1550 1452.5 Output Total 280 30 Balance 1270 1422.5 Intake: Intake, IV Titration 600 862.5 Amount Sodium Chloride 0.9% 1, 600 862.5 000 ml @ 75 mls/hr IV . [id number] [facility] Rx#:[id number] Oral 950 590 Output: Drainage 30 30 Left Lower Abdomen 30 30 Urine 250 Other: Voiding Method Urinal Urinal # Voids 2 2 - Exam Physical exam 81-year-old male very hard of hearing resting in bed oriented to place and person Lungs diminished at the bases upper airways clear nasal cannula 2 L sats are 96 % no cough Heart S1-S2 audible regular Abdomen ostomy left lower quadrant scant amount of serous drainage in ostomy bag no stool VARINDER drain in place left lower quadrant serous drainage. Hypoactive bowel tones. Soft surgical tenderness appropriate surgical dressing dry no reports of nausea vomiting Extremities Venodyne's on to the bilateral lower extremities no edema - Labs CBC & Chem 7: 04/13/17 07:00 04/13/17 07:00 Labs: Abnormal Lab Results - Last 24 Hours (Table) 04/13/17 04/13/17 04/13/17 Range/Units 07:00 11:28 17:06 WBC 17.3 H (3.8-10.6) k/uL RBC 3.71 L (4.30-5.90) m/uL Hgb 11.5 L (13.0-17.5) gm/dL Hct 33.9 L (39.0-53.0) % Plt Count 118 L (150-450) k/uL Lymphocytes # 9.2 H (1.0-4.8) k/uL POC Glucose (mg/dL) 196 H 122 H (75-99) mg/dL Urine Protein (Negative) Urine Blood (Negative) Urine Mucus (None) /hpf 04/13/17 04/13/17 04/14/17 Range/Units 20:05 23:40 07:51 WBC (3.8-10.6) k/uL RBC (4.30-5.90) m/uL Hgb (13.0-17.5) gm/dL Hct (39.0-53.0) % Plt Count (150-450) k/uL Lymphocytes # (1.0-4.8) k/uL POC Glucose (mg/dL) 166 H 187 H (75-99) mg/dL Urine Protein Trace H (Negative) Urine Blood Small H (Negative) Urine Mucus Rare H (None) /hpf Assessment and Plan Assessment: Impression Status post April 11 lysis of adhesions, repair of parastomal hernia, partial colectomy for parastomal hernia with prolapse of colon debilitated Accelerated hypertension History of rectal cancer Plan Continue postop surgical care PT OT eval clear liquid diet do not advance until bowel function resumes. DVT and GI prophylaxis Pain control Defer to medicine to address medical issues Progress note dictated for dr veras The above impression and plan of care have been discussed and directed by signing physician. Pura Hartley nurse practitioner acting as scribe for signing physician.
[2017-04-14] MEDS: amLODIPine 5 MG TAB PO SCH (09:56)
[2017-04-14 10:57] LABS: Basophils # (A) 0.1 k/uL (0-0.2); Basophils % (A) 1 %; Eosinophils # (A) 0.1 k/uL (0-0.7); Eosinophils % (A) 0 %; HCT 36.4 % (39.0-53.0); HGB 12.2 gm/dL (13.0-17.5); Lymphocytes % (A) 56 %; MCH 31.4 pg (25.0-35.0); MCHC 33.5 g/dL (31.0-37.0); MCV 93.7 fL (80.0-100.0); Mean Platelet Volume 7.3; Monocytes # (A) 0.6 k/uL (0-1.0); Monocytes % (A) 3 %; Neutrophils # (A) 6.5 k/uL (1.3-7.7); Neutrophils % (A) 37 %; Platelet Count 129 k/uL (150-450); RBC 3.88 m/uL (4.30-5.90); RDW 15.2 % (11.5-15.5); WBC 17.5 k/uL (3.8-10.6)
[2017-04-14 11:06] LABS: Anion Gap 8 mmol/L; Blood Urea Nitrogen 13 mg/dL (9-20); Calcium 8.7 mg/dL (8.4-10.2); Carbon Dioxide 26 mmol/L (22-30); Chloride 103 mmol/L (98-107); Glucose 207 mg/dL (74-99); Potassium 4.1 mmol/L (3.5-5.1); Sodium 137 mmol/L (137-145)
[2017-04-14 11:08] LABS: Lymphocytes # (A) 9.8 k/uL (1.0-4.8)
[2017-04-14 11:57] LABS: Glucose,Whole Blood 177 mg/dL (75-99)
[2017-04-14] MEDS: LEVOFLOXACIN 500MG-D5W PMX 500 MG in DEXTROSE/WATER 1 100ML.BAG IVPB SCH (16:02)
[2017-04-14 16:46] LABS: Glucose,Whole Blood 184 mg/dL (75-99)
--- NOTE | 2017-04-14 17:18 | PN ---
PROGRESS NOTE DATE OF SERVICE: 04/13/2017 I am covering for Dr. Arshad. HISTORY OF PRESENT ILLNESS: This 81-year-old gentleman admitted after parastomal hernia repair, also had acute bronchitis. Patient had elevated white count. The patient is on broad spectrum IV antibiotics. No chest pain. No palpitations. No fever. EXAM: Alert and oriented. Pulse is 88, blood pressure 171/76, respiration 20, temperature 98.7, pulse ox 94% on 2 L. HEENT: Conjunctivae normal. NECK: No jugular venous distention. CARDIOVASCULAR: S1, S2. RESPIRATORY: Breath sounds diminished in the bases. A few scattered rhonchi and crackles. ABDOMEN: Soft, nontender. No mass palpable. LEGS: No edema. NERVOUS SYSTEM: No focal deficit. LAB STUDIES: WBC 7, hemoglobin 11.4. ASSESSMENT: 1. Status post parastomal hernia repair with collapse of colon. 2. Cough with possible acute bronchitis. 3. Diabetes mellitus type 2. 4. Increased WBC. 5. Anemia normocytic anemia of chronic disease. 6. History of bowel resection. 7. History of colostomy. 8. Remote history of nicotine dependence. 9. FULL CODE. RECOMMENDATIONS AND DISCUSSION: I recommend to continue current management and symptomatic treatment. At this time I recommend continue the antibiotics and continue the bronchodilators. Influenza screen is negative. Dr. Arshad will follow. MMODL / IJN: [id number] /
[2017-04-14 21:04] LABS: Glucose,Whole Blood 155 mg/dL (75-99)
[2017-04-14] MEDS: LACTATED RINGERS 1,000 ML IV SCH (21:54)
[2017-04-15] MEDS: HEPARIN SODIUM,PORCINE 5,000 UNIT/ML 1 ML VIAL SQ SCH ×3 (00:54→16:30)
[2017-04-15] MEDS: HYDROmorphone 2 MG/ML 1 ML SYRINGE IVP PRN (04:07)
[2017-04-15] MEDS: METOCLOPRAMIDE 5 MG/ML 2 ML VIAL IVP PRN ×2 (04:08→16:30)
[2017-04-15 07:08] LABS: Glucose,Whole Blood 139 mg/dL (75-99)
[2017-04-15 07:26] LABS: Basophils # (A) 0.1 k/uL (0-0.2); Basophils % (A) 1 %; Eosinophils # (A) 0.1 k/uL (0-0.7); Eosinophils % (A) 1 %; HCT 34.2 % (39.0-53.0); HGB 11.9 gm/dL (13.0-17.5); Hyperchromasia Slight; Lymphocytes % (A) 58 %; MCH 31.3 pg (25.0-35.0); MCHC 34.8 g/dL (31.0-37.0); MCV 89.8 fL (80.0-100.0); Mean Platelet Volume 6.9; Monocytes # (A) 0.6 k/uL (0-1.0); Monocytes % (A) 4 %; Neutrophils # (A) 5.5 k/uL (1.3-7.7); Neutrophils % (A) 34 %; Platelet Count 146 k/uL (150-450); Poikilocytosis Slight; RBC 3.82 m/uL (4.30-5.90); RDW 14.3 % (11.5-15.5)
[2017-04-15 07:42] LABS: Lymphocytes # (A) 9.3 k/uL (1.0-4.8)
[2017-04-15 07:50] LABS: Anion Gap 3 mmol/L; Blood Urea Nitrogen 14 mg/dL (9-20); Calcium 8.6 mg/dL (8.4-10.2); Carbon Dioxide 31 mmol/L (22-30); Chloride 103 mmol/L (98-107); Glucose 144 mg/dL (74-99); Potassium 3.9 mmol/L (3.5-5.1); Sodium 137 mmol/L (137-145)
[2017-04-15] MEDS: INSULIN ASPART 100 UNIT/ML 1 ML 10 ML VIAL SQ SCH ×4 (08:51→20:35)
[2017-04-15] MEDS: FAMOTIDINE 20 MG/2 ML VIAL IV SCH (08:59)
[2017-04-15] MEDS: BACLOFEN 10 MG TAB PO SCH (09:00)
[2017-04-15] MEDS: amLODIPine 5 MG TAB PO SCH (09:00)
[2017-04-15] MEDS: ALVIMOPAN 12 MG CAPSULE PO SCH ×2 (09:00→20:37)
[2017-04-15] MEDS: LOSARTAN 25 MG TAB PO SCH ×2 (09:00→20:37)
[2017-04-15] MEDS: glipiZIDE 10 MG TAB PO SCH (09:00)
[2017-04-15] MEDS: MULTIVITAMINS, THERA 1 EACH TAB PO SCH (09:00)
[2017-04-15] MEDS: ESCITALOPRAM 5 MG TAB PO SCH (09:00)
[2017-04-15] MEDS: metFORMIN 500 MG TAB PO SCH (09:00)
--- NOTE | 2017-04-15 10:30 | P.PN ---
Subjective Progress Note Date: 04/15/17 81-year-old male who underwent repair of parastomal hernia, partial colectomy, and lysis of adhesions on 04/11/[address] Arshad has been consulted for medical management. 04/14/2017 Patient was seen and examined at the bedside on rounds with Dr. Arshad. He is awake and alert. He states he is having a lot of pain currently. He states he is feeling very weak today. He is on a clear liquid diet and is tolerating without nausea or vomiting. His surgical dressing is intact with old drainage present. No flatus or output from his colostomy bag. VARINDER drain intact with serosang drainage. His blood pressure has been elevated with a systolic ranging from 164-190. He is on 2 L nasal cannula with oxygen saturations greater than 92%. He states he is using his incentive spirometer 10 times an hour. 04/15/2017 Patient seen and examined at the bedside. He is awake and alert. very hard of hearing. He continues to have a lot of abdominal pain that he describes as cramping. His surgical dressing is intact with a large amount of old bloody drainage. Patient states nursing told him they were going to change his dressing soon. Patient states he feels "gassy" and is burping frequently. At the time of my examination, there is no flatus or output in the colostomy bag. Patient states he is using his incentive spirometer by not as much as he should. When asked patient to demonstrate IS, he told provider "I cant right now because of the gas". Patients blood pressure remains elevated despite increase in cozaar and addition of Norvasc, likely secondary to pain. Physical therapy evaluated the patient and recommended home with home care yesterday. Patients family is requesting [facility] at the time of discharge. Objective - Vital Signs Vital signs: Vital Signs Temp 98.8 F 04/15/17 07:00 Pulse 67 04/15/17 07:00 Resp 14 04/15/17 07:00 BP 170/81 04/15/17 07:00 Pulse Ox 94 L 04/15/17 07:00 Intake & Output 04/14/17 04/15/17 04/15/17 18:59 06:59 18:59 Intake Total 200 Output Total 520 655 Balance -520 -655 200 Weight 97.522 kg 97.522 kg Intake: Oral 200 Output: Drainage 20 5 Left Lower Abdomen 20 5 Urine 500 650 Other: Voiding Method Urinal # Voids 2 3 - Exam GENERAL: This is a 81-year-old male in no apparent distress at the time of examination. Pleasant and cooperative. HEENT: Hard of hearing. Head is atraumatic, normocephalic. Pupils are equal, round, and reactive to light. Sclerae anicteric. Conjunctivae are clear. Mucus membranes of the mouth are moist. Neck is supple. RESPIRATORY: Clear to ausculation. No wheezes, rales, or rhonchi. No use of accessory muscles. Patient maintaining oxygen saturation greater than 92% on 2 L nasal cannula. No chest wall tenderness is noted on palpation or with deep breathing. CARDIOVASCULAR: S1 and S2 noted. No systolic or diastolic murmur auscultated. No JVD noted. No S3 or S4 noted. GASTROINTESTINAL: Colostomy present without flatus or output. VARINDER drain intact with serosang drainage. Abdomen soft and round. Hypoactive bowel sounds auscultated x 4 quadrants. Pain and tenderness noted upon palpation. INTEGUMENTARY: Surgical dressing to abdomen with large amount of old bloody drainage. No cyanosis. No jaundice. No rashes noted. No cellulitis noted. EXTREMITIES: 2+ peripheral pulses. No evidence of peripheral edema. No calf tenderness noted. NEUROLOGIC: Cranial nerves II-XII intact. PSYCHIATRIC: Awake, alert, and oriented X 3. Appropriate affect. Intact judgement and insight. - Labs CBC & Chem 7: 04/15/17 06:55 04/15/17 06:55 Labs: Abnormal Lab Results - Last 24 Hours (Table) 04/14/17 04/14/17 04/14/17 Range/Units 10:31 10:31 11:39 WBC 17.5 H (3.8-10.6) k/uL RBC 3.88 L (4.30-5.90) m/uL Hgb 12.2 L (13.0-17.5) gm/dL Hct 36.4 L (39.0-53.0) % Plt Count 129 L (150-450) k/uL Lymphocytes # 9.8 H (1.0-4.8) k/uL Carbon Dioxide (22-30) mmol/L Glucose 207 H (74-99) mg/dL POC Glucose (mg/dL) 177 H (75-99) mg/dL 04/14/17 04/14/17 04/15/17 Range/Units 16:43 21:02 06:55 WBC 16.0 H (3.8-10.6) k/uL RBC 3.82 L (4.30-5.90) m/uL Hgb 11.9 L (13.0-17.5) gm/dL Hct 34.2 L (39.0-53.0) % Plt Count 146 L (150-450) k/uL Lymphocytes # (1.0-4.8) k/uL Carbon Dioxide (22-30) mmol/L Glucose (74-99) mg/dL POC Glucose (mg/dL) 184 H 155 H (75-99) mg/dL 04/15/17 04/15/17 Range/Units 06:55 07:06 WBC (3.8-10.6) k/uL RBC (4.30-5.90) m/uL Hgb (13.0-17.5) gm/dL Hct (39.0-53.0) % Plt Count (150-450) k/uL Lymphocytes # (1.0-4.8) k/uL Carbon Dioxide 31 H (22-30) mmol/L Glucose 144 H (74-99) mg/dL POC Glucose (mg/dL) 139 H (75-99) mg/dL Microbiology - Last 24 Hours (Table) 04/13/17 13:40 Blood Culture - Preliminary Blood No Growth after 24 hours 04/13/17 23:40 Urine Culture - Preliminary Urine,Voided Assessment and Plan Plan: ASSESSMENT: Parastomal hernia and prolapse of colostomy Repair of parastomal hernia, partial colectomy, and lysis of adhesions on 2017 History of rectal cancer with bowel resection and colostomy Diabetes mellitus, type II, hemoglobin A1c 6.8% History of remote nicotine dependence Essential hypertension Obesity: BMI 30.8 PLAN: -Continue postoperative care per Dr. Reynoso -Monitor blood pressure -Continue Cozaar and Norvasc -Will add Hydralazine 10mg PRN IVP Q4 hours for SBP greater than 160 or DBP greater than 90 -Capillary blood glucose accu-checks AC/HS -NovoLog sliding scale insulin coverage AC/HS -Home meds as appropriate -Monitor labs -Pain control -Encourage ambulation -Incentive spirometer 10 times an hour while awake -Up to chair daily -PT/OT -GI prophylaxis: Pepcid 20mg IV BID -DVT prophylaxis: Heparin 5000 units subcu every 8 hours -Monitor vital signs and address as appropriate -Discharge planning: Patients family requesting [facility] at time of discharge -Further recommendations pending patient's course Nurse practitioner note has been reviewed by physician. Signing provider agrees with the documented findings, assessment, and plan of care.
[2017-04-15] MEDS ORDERED: hydrALAZINE HCL 20 MG/ML 1 ML VIAL IVP PRN (10:31)
[2017-04-15] MEDS ORDERED: traMADol 50 MG TAB PO PRN (10:36)
[2017-04-15] MEDS ORDERED: HYDROmorphone 0.5 MG/0.5 ML SYRINGE IVP PRN (10:37)
--- NOTE | 2017-04-15 10:40 | P.PN ---
Subjective Progress Note Date: 04/15/17 81-year-old male seen and examined at bedside. white count trending down 16 this morning afebrile passing gas belching but no stool. Ostomy left lower quadrant scant amount of serous drainage noted in the bag VARINDER drain in place left lower quadrant 20ml last 8 hours tolerating diet no nausea no vomiting PT OT participating in the plan of care Postop April 11 lysis of adhesions partial colectomy repair of a parastomal hernia Objective - Vital Signs Vital signs: Vital Signs Temp 98.8 F 04/15/17 07:00 Pulse 67 04/15/17 07:00 Resp 14 04/15/17 07:00 BP 170/81 04/15/17 07:00 Pulse Ox 94 L 04/15/17 07:00 Intake & Output 04/14/17 04/15/17 04/15/17 18:59 06:59 18:59 Intake Total 200 Output Total 520 655 Balance -520 -655 200 Weight 97.522 kg 97.522 kg Intake: Oral 200 Output: Drainage 20 5 Left Lower Abdomen 20 5 Urine 500 650 Other: Voiding Method Urinal # Voids 2 3 - Exam Physical exam 81-year-old male sitting up on the edge of the bed hard of hearing pleasant cooperative Lungs adequate air movement bilaterally on room air no cough noted Heart S1-S2 audible regular Abdomen soft surgical tenderness appropriate ostomy left lower quadrant no stool passing gas urinating no difficulty VARINDER drain left lower quadrant serous drainage in the bulb. Surgical dressing dry with old bloody drainage noted nondistended Extremities Venodyne's on to the bilateral lower extremities - Labs CBC & Chem 7: 04/15/17 06:55 04/15/17 06:55 Labs: Abnormal Lab Results - Last 24 Hours (Table) 04/14/17 04/14/17 04/14/17 Range/Units 10:31 10:31 11:39 WBC 17.5 H (3.8-10.6) k/uL RBC 3.88 L (4.30-5.90) m/uL Hgb 12.2 L (13.0-17.5) gm/dL Hct 36.4 L (39.0-53.0) % Plt Count 129 L (150-450) k/uL Lymphocytes # 9.8 H (1.0-4.8) k/uL Carbon Dioxide (22-30) mmol/L Glucose 207 H (74-99) mg/dL POC Glucose (mg/dL) 177 H (75-99) mg/dL 04/14/17 04/14/17 04/15/17 Range/Units 16:43 21:02 06:55 WBC 16.0 H (3.8-10.6) k/uL RBC 3.82 L (4.30-5.90) m/uL Hgb 11.9 L (13.0-17.5) gm/dL Hct 34.2 L (39.0-53.0) % Plt Count 146 L (150-450) k/uL Lymphocytes # 9.3 H (1.0-4.8) k/uL Carbon Dioxide (22-30) mmol/L Glucose (74-99) mg/dL POC Glucose (mg/dL) 184 H 155 H (75-99) mg/dL 04/15/17 04/15/17 Range/Units 06:55 07:06 WBC (3.8-10.6) k/uL RBC (4.30-5.90) m/uL Hgb (13.0-17.5) gm/dL Hct (39.0-53.0) % Plt Count (150-450) k/uL Lymphocytes # (1.0-4.8) k/uL Carbon Dioxide 31 H (22-30) mmol/L Glucose 144 H (74-99) mg/dL POC Glucose (mg/dL) 139 H (75-99) mg/dL Microbiology - Last 24 Hours (Table) 04/13/17 13:40 Blood Culture - Preliminary Blood No Growth after 24 hours 04/13/17 23:40 Urine Culture - Preliminary Urine,Voided Assessment and Plan Assessment: Impression Status post April 11 lysis of adhesions, repair of parastomal hernia, partial colectomy for parastomal hernia with prolapse of colon debilitated Accelerated hypertension History of rectal cancer Plan Continue postop surgical care Increase activity PT OT eval clear liquid diet do not advance until bowel function resumes. DVT and GI prophylaxis Pain control Defer to medicine to address medical issues Progress note dictated for dr veras The above impression and plan of care have been discussed and directed by signing physician. Pura Hartley nurse practitioner acting as scribe for signing physician.
[2017-04-15 11:24] LABS: Glucose,Whole Blood 176 mg/dL (75-99)
[2017-04-15] MEDS: LEVOFLOXACIN 500 MG TAB PO SCH (13:53)
[2017-04-15 17:11] LABS: Glucose,Whole Blood 135 mg/dL (75-99)
[2017-04-15] MEDS: FAMOTIDINE 20 MG TAB PO SCH (20:37)
[2017-04-15 20:38] LABS: Glucose,Whole Blood 177 mg/dL (75-99)
[2017-04-15] MEDS: ZOLPIDEM 10 MG TAB PO PRN (20:41)
[2017-04-16] MEDS ORDERED: HEPARIN SODIUM,PORCINE 5,000 UNIT/ML 1 ML VIAL ONE
[2017-04-16] MEDS: LACTATED RINGERS 1,000 ML IV SCH (05:21)
[2017-04-16] MEDS: HEPARIN SODIUM,PORCINE 5,000 UNIT/ML 1 ML VIAL SQ SCH ×2 (05:21→08:32)
[2017-04-16 08:12] LABS: ALT 48 U/L (21-72); AST 28 U/L (17-59); Alkaline Phosphatase 61 U/L (38-126); Anion Gap 8 mmol/L; Blood Urea Nitrogen 13 mg/dL (9-20); Calcium 8.4 mg/dL (8.4-10.2); Carbon Dioxide 28 mmol/L (22-30); Chloride 103 mmol/L (98-107); Glucose 155 mg/dL (74-99); Potassium 3.6 mmol/L (3.5-5.1); Sodium 139 mmol/L (137-145); Total Bilirubin 1.2 mg/dL (0.2-1.3); Total Protein 4.8 g/dL (6.3-8.2)
[2017-04-16 08:13] LABS: Glucose,Whole Blood 187 mg/dL (75-99)
[2017-04-16] MEDS: INSULIN ASPART 100 UNIT/ML 1 ML 10 ML VIAL SQ SCH ×2 (08:32→13:48)
[2017-04-16] MEDS: amLODIPine 5 MG TAB PO SCH (08:33)
[2017-04-16] MEDS: BACLOFEN 10 MG TAB PO SCH (08:33)
[2017-04-16] MEDS: glipiZIDE 10 MG TAB PO SCH (08:33)
[2017-04-16] MEDS: ESCITALOPRAM 5 MG TAB PO SCH (08:33)
[2017-04-16] MEDS: ALVIMOPAN 12 MG CAPSULE PO SCH (08:33)
[2017-04-16] MEDS: FAMOTIDINE 20 MG TAB PO SCH (08:33)
[2017-04-16] MEDS: metFORMIN 500 MG TAB PO SCH (08:33)
[2017-04-16 08:51] LABS: HCT 35.2 % (39.0-53.0); HGB 11.6 gm/dL (13.0-17.5); MCHC 32.9 g/dL (31.0-37.0); MCV 94.4 fL (80.0-100.0); Mean Platelet Volume 7.7; Platelet Count 135 k/uL (150-450); RBC 3.73 m/uL (4.30-5.90); RDW 15.4 % (11.5-15.5); WBC 14.5 k/uL (3.8-10.6)
[2017-04-16] MEDS ORDERED: LOSARTAN 50 MG TAB PO SCH (09:00)
--- NOTE | 2017-04-16 09:28 | P.PN ---
Subjective Progress Note Date: 04/16/17 81-year-old male who underwent repair of parastomal hernia, partial colectomy, and lysis of adhesions on 04/11/[address] Arshad has been consulted for medical management. 04/14/2017 Patient was seen and examined at the bedside on rounds with Dr. Arshad. He is awake and alert. He states he is having a lot of pain currently. He states he is feeling very weak today. He is on a clear liquid diet and is tolerating without nausea or vomiting. His surgical dressing is intact with old drainage present. No flatus or output from his colostomy bag. VARINDER drain intact with serosang drainage. His blood pressure has been elevated with a systolic ranging from 164-190. He is on 2 L nasal cannula with oxygen saturations greater than 92%. He states he is using his incentive spirometer 10 times an hour. 04/15/2017 Patient seen and examined at the bedside. He is awake and alert. very hard of hearing. He continues to have a lot of abdominal pain that he describes as cramping. His surgical dressing is intact with a large amount of old bloody drainage. Patient states nursing told him they were going to change his dressing soon. Patient states he feels "gassy" and is burping frequently. At the time of my examination, there is no flatus or output in the colostomy bag. Patient states he is using his incentive spirometer by not as much as he should. When asked patient to demonstrate IS, he told provider "I cant right now because of the gas". Patients blood pressure remains elevated despite increase in cozaar and addition of Norvasc, likely secondary to pain. Physical therapy evaluated the patient and recommended home with home care yesterday. Patients family is requesting [facility] at the time of discharge. 04/16/2017 Patient seen and examined at the bedside. He is sitting up in the chair. His ostomy is functioning with brown liquid stool. VARINDER drain remains intact with minimal drainage. His blood pressure remains elevated. His Cozaar was increased to 50 mg twice a day per surgery. He states he is using his incentive spirometer 10 times an hour. His pain is tolerable at this time. He denies shortness of breath or chest pain. He is tolerating a clear liquid diet without nausea or vomiting. Patient states he does not have much of an appetite at this time, but would like his diet advanced. Objective - Vital Signs Vital signs: Vital Signs Temp 98.9 F 04/16/17 02:19 Pulse 89 04/16/17 02:19 Resp 16 04/16/17 02:19 BP 169/76 04/16/17 02:19 Pulse Ox 92 L 04/16/17 02:19 Intake & Output 04/15/17 04/16/17 04/16/17 18:59 06:59 18:59 Intake Total 1080 370 Output Total 300 600 900 Balance 780 -230 -900 Weight 97.522 kg Intake: IV 70 .9 ns kvo 70 Intake, IV Titration 600 Amount Sodium Chloride 0.9% 1, 600 000 ml @ 75 mls/hr IV . [id number] [facility] Rx#:[id number] Oral 480 300 Output: Drainage 30 Left Lower Abdomen 30 Urine 270 600 700 Stool 200 Other: Voiding Method Urinal # Voids 1 1 - Exam GENERAL: This is a 81-year-old male in no apparent distress at the time of examination. Pleasant and cooperative. HEENT: Hard of hearing. Head is atraumatic, normocephalic. Pupils are equal, round, and reactive to light. Sclerae anicteric. Conjunctivae are clear. Mucus membranes of the mouth are moist. Neck is supple. RESPIRATORY: Clear to ausculation. No wheezes, rales, or rhonchi. No use of accessory muscles. Patient maintaining oxygen saturation greater than 92% on 2 L nasal cannula. No chest wall tenderness is noted on palpation or with deep breathing. CARDIOVASCULAR: S1 and S2 noted. No systolic or diastolic murmur auscultated. No JVD noted. No S3 or S4 noted. GASTROINTESTINAL: Colostomy present with brown liquid stool. VARINDER drain intact with minimal drainage. Abdomen soft and round. Hypoactive bowel sounds auscultated x 4 quadrants. Pain and tenderness noted upon palpation. INTEGUMENTARY: Surgical dressing to abdomen clean dry and intact. No cyanosis. No jaundice. No rashes noted. No cellulitis noted. EXTREMITIES: 2+ peripheral pulses. No evidence of peripheral edema. No calf tenderness noted. NEUROLOGIC: Cranial nerves II-XII intact. PSYCHIATRIC: Awake, alert, and oriented X 3. Appropriate affect. Intact judgement and insight. - Labs CBC & Chem 7: 04/16/17 07:14 04/16/17 07:14 Labs: Abnormal Lab Results - Last 24 Hours (Table) 04/15/17 04/15/17 04/15/17 Range/Units 06:55 11:17 17:08 WBC 16.0 H (3.8-10.6) k/uL RBC 3.82 L (4.30-5.90) m/uL Hgb 11.9 L (13.0-17.5) gm/dL Hct 34.2 L (39.0-53.0) % Plt Count 146 L (150-450) k/uL Lymphocytes # 9.3 H (1.0-4.8) k/uL Glucose (74-99) mg/dL POC Glucose (mg/dL) 176 H 135 H (75-99) mg/dL Total Protein (6.3-8.2) g/dL Albumin (3.5-5.0) g/dL 04/15/17 04/16/17 04/16/17 Range/Units 20:29 07:05 07:14 WBC 14.5 H (3.8-10.6) k/uL RBC 3.73 L (4.30-5.90) m/uL Hgb 11.6 L (13.0-17.5) gm/dL Hct 35.2 L (39.0-53.0) % Plt Count 135 L (150-450) k/uL Lymphocytes # (1.0-4.8) k/uL Glucose (74-99) mg/dL POC Glucose (mg/dL) 177 H 187 H (75-99) mg/dL Total Protein (6.3-8.2) g/dL Albumin (3.5-5.0) g/dL 04/16/17 Range/Units 07:14 WBC (3.8-10.6) k/uL RBC (4.30-5.90) m/uL Hgb (13.0-17.5) gm/dL Hct (39.0-53.0) % Plt Count (150-450) k/uL Lymphocytes # (1.0-4.8) k/uL Glucose 155 H (74-99) mg/dL POC Glucose (mg/dL) (75-99) mg/dL Total Protein 4.8 L (6.3-8.2) g/dL Albumin 3.0 L (3.5-5.0) g/dL Microbiology - Last 24 Hours (Table) 04/13/17 13:40 Blood Culture - Preliminary Blood No Growth after 48 hours 04/13/17 23:40 Urine Culture - Final Urine,Voided Assessment and Plan Plan: ASSESSMENT: Parastomal hernia and prolapse of colostomy Repair of parastomal hernia, partial colectomy, and lysis of adhesions on 2017 History of rectal cancer with bowel resection and colostomy Diabetes mellitus, type II, hemoglobin A1c 6.8% History of remote nicotine dependence Essential hypertension Obesity: BMI 30.8 PLAN: -Continue postoperative care per Dr. Reynoso -Monitor blood pressure -Cozaar increased to 50 mg twice a day per surgery -Continue Norvasc -Continue Hydralazine 10mg PRN IVP Q4 hours for SBP greater than 160 or DBP greater than 90 -Capillary blood glucose accu-checks AC/HS -NovoLog sliding scale insulin coverage AC/HS -Home meds as appropriate -Monitor labs -Pain control -Encourage ambulation -Incentive spirometer 10 times an hour while awake -Up to chair daily -PT/OT -GI prophylaxis: Pepcid 20mg IV BID -DVT prophylaxis: Heparin 5000 units subcu every 8 hours -Monitor vital signs and address as appropriate -Discharge planning: Patients family requesting [facility] at time of discharge -Patient is cleared for discharge from a medical standpoint when cleared from attending physician Nurse practitioner note has been reviewed by physician. Signing provider agrees with the documented findings, assessment, and plan of care.
[2017-04-16 10:32] VITALS: PULSE 80; RESP 18
[2017-04-16 10:35] VITALS: TEMP 97.8
[2017-04-16 11:23] LABS: Band Neutrophils % 1 %; Metamyelocytes # (M) 0.15 k/uL (0); Metamyelocytes % 1 %; Monocytes # (M) 0.58 k/uL (0-1.0); Neutrophils % (M) 36 %; Nucleated Red Blood Cells 0 /100 WBC (0-0); Total Cells Counted 200
[2017-04-16 11:24] LABS: Poikilocytosis (M) Present
[2017-04-16 11:53] LABS: Glucose,Whole Blood 159 mg/dL (75-99)
[2017-04-16 12:38] VITALS: BP 172/82
--- NOTE | 2017-04-16 12:49 | P.DS ---
Providers Date of admission: 04/11/17 11:59 Expected date of discharge: 04/16/17 Attending physician: Blake Reynoso Consults: 04/11/17 11:50 Consult Physician Routine Consulting Provider: Olegario Arshad Reason/Comments: Medical management Do you want consulting provider notified?: Yes Primary care physician: Olegario Arshad [facility] Course: 81-year-old male presented to undergo an elective repair of a parastomal hernia and colostomy prolapse. Patient has a large parastomal hernia. Patient underwent on April 11 lysis of adhesions, repair of peristomal hernia, partial colectomy. There were no postop events at the time of discharge to the Rehab , [facility] patient's and family's choice ostomy was functioning patient was afebrile. The white count was 14.5 down from 16 electrolytes within normal limits patient was transferred on the Impression Status post April 11 lysis of adhesions, repair of parastomal hernia, partial colectomy for parastomal hernia with prolapse of colon debilitated Accelerated hypertension History of rectal cancer with bowel resection and colostomy Obesity BMI 31 Essential hypertension Type 2 diabetes hemoglobin A1c 6.8 The above impression and plan of care have been discussed and directed by signing physician. Pura Hartley nurse practitioner acting as scribe for signing physician. Plan - Discharge Summary Discharge Rx Participant: Yes New Discharge Prescriptions: New amLODIPine [Norvasc] 5 mg PO DAILY tab Losartan [Cozaar] 50 mg PO BID tab traMADol HCl [Ultram] 50 mg PO QID PRN #30 tab PRN Reason: Breakthrough Pain Continue metFORMIN HCL [Glucophage] 500 mg PO DAILY glipiZIDE [Glucotrol] 10 mg PO DAILY Multivitamin [Men's Multi-Vitamin] 1 tab PO DAILY Escitalopram [Lexapro] 5 mg PO DAILY Baclofen [Lioresal] 10 mg PO DAILY Zolpidem [Ambien] 10 mg PO HS #30 tab Discontinued Losartan [Cozaar] 25 mg PO DAILY Discharge Medication List glipiZIDE [Glucotrol] 10 mg PO DAILY 12/17/13 [History] metFORMIN HCL [Glucophage] 500 mg PO DAILY 12/17/13 [History] Baclofen [Lioresal] 10 mg PO DAILY 04/03/17 [History] Escitalopram [Lexapro] 5 mg PO DAILY 04/03/17 [History] Multivitamin [Men's Multi-Vitamin] 1 tab PO DAILY 04/03/17 [History] Losartan [Cozaar] 50 mg PO BID tab 04/16/17 [Rx] Zolpidem [Ambien] 10 mg PO HS #30 tab 04/16/17 [Rx] amLODIPine [Norvasc] 5 mg PO DAILY tab 04/16/17 [Rx] traMADol HCl [Ultram] 50 mg PO QID PRN #30 tab 04/16/17 [Rx] Follow up Appointment(s)/Referral(s): Olegario Arshad DO [Primary Care Provider] - 1 Week (1 week after DC from [facility]) Blake Reynoso MD [STAFF PHYSICIAN] - 04/24/17 2:40 pm Patient Instructions/Handouts: Colostomy Care (GEN) Activity/Diet/Wound Care/Special Instructions: Colostomy Care Instructions for transition of Care: Last ostomy apppliance change: 04.15.2017 Current ostomy supplies utilized in hospital & going with Mr Franco for transition: Mr Franco will have three pouching systems and accessories for home use for the hospital on transition.as follows: [employer] One piece cut to fit #[id number] (three) Ostomy Powder Skin preps (10) Vinnie seals (three) fill the skin crease around the ostomy stoma if needed Empty the pouching system when it is 1/2 to 1/3 full Change the entire appliance every 3-5 days Home Health please evaluate Mr Franco's current Coloplast ostomy pouching system (two piece click) at home for ongoing use if possible or set up with additional DME priro to discharging from service Full liquid diet can be advanced as tolerated to low-fat diet Discharge Disposition: HOME SELF-CARE
[2017-04-16] MEDS: MULTIVITAMINS, THERA 1 EACH TAB PO SCH (14:20)
[2017-04-16] MEDS: LEVOFLOXACIN 500 MG TAB PO SCH (14:21)
== END 2017-04-16 15:24 | disposition home or self-care (01) | DRG 331 ==
LOC: OR 07:52 → 3SUR 11:59
PROVIDERS: ADMIT Surgery; ATTEND Surgery
PROC: 0DBE0ZZ Excision of Large Intestine, Open Approach (ICD-10-PCS; principal; 2017-04-11 09:45)
PROC: 0DN80ZZ Release Small Intestine, Open Approach (ICD-10-PCS; principal; 2017-04-11 09:45)
PROC: 0WQF0ZZ Repair Abdominal Wall, Open Approach (ICD-10-PCS; principal; 2017-04-11 09:45)
DX: K94.09 Other complications of colostomy (principal); E11.65 Type 2 diabetes mellitus with hyperglycemia; D63.8 Anemia in other chronic diseases classified elsewhere; K43.5 Parastomal hernia without obstruction or gangrene; E66.9 Obesity, unspecified; H91.90 Unspecified hearing loss, unspecified ear; I10 Essential (primary) hypertension; J20.9 Acute bronchitis, unspecified; K21.9 Gastro-esophageal reflux disease without esophagitis; Z79.899 Other long term (current) drug therapy; Z80.9 Family history of malignant neoplasm, unspecified; Z85.048 Personal history of other malignant neoplasm of rectum, rectosigmoid junction, and anus; Z87.891 Personal history of nicotine dependence; Z79.84 Long term (current) use of oral hypoglycemic drugs; K66.0 Peritoneal adhesions (postprocedural) (postinfection)
CPT/HCPCS: 71045; 80048; 80053; 81001; 83036; 85025; 87040; 87086; 87502; 88304; 88307; 93005; 94640